=== PATIENT | male | born 1990 | race Caucasian/White ===

== ENCOUNTER 2023-01-28 21:21 | Emergency (ER) | payer OTHER ==
[~2023-01-28] VITALS: Ht 177.8 cm; Wt 86.2 kg
[2023-01-28 21:27] VITALS: BP_SYST 119; PULSE 79; RESP 20; TEMP 99; O2SAT 97
[2023-01-28 22:43] LABS: BASOPHILS % (AUTO) 0.5 % (0.0-2.0); EOSINOPHILS % (AUTO) 0.1 % (0.0-4.0); HEMATOCRIT 41.8 % (36-54); HEMOGLOBIN 14.8 g/dL (14.0-18.0); LYMPHOCYTES # (AUTO) 1.6 K/uL (1.0-5.5); LYMPHOCYTES % (AUTO) 18.6 % (20.5-51.5); MEAN CORPUSCULAR HEMOGLOBIN 32 pg (27-31); MEAN CORPUSCULAR HGB CONC 35 % (32-36); MEAN CORPUSCULAR VOLUME 90 fL (79.0-98.0); MONOCYTES # (AUTO) 0.9 K/uL (0.0-1.0); NEUTROPHILS # (AUTO) 6.1 K/uL (1.8-7.7); NEUTROPHILS % (AUTO) 70.8 % (40.0-70.0); PLATELET COUNT (AUTO) 261 K/uL (130-430); RED BLOOD CELL COUNT(AUTO) 4.64 MIL/uL (4.2-6.2); RED CELL DISTRIBUTION WIDTH 12.3 % (9.0-15.0); WHITE BLOOD COUNT (AUTO) 8.6 K/uL (4.8-10.8)
[2023-01-28 22:55] LABS: CALCIUM 8.9 mg/dL (8.4-11.0); CREATININE 1.21 mg/dL (0.55-1.30)
[2023-01-28 23:00] LABS: ALBUMIN 4.1 g/dL (3.4-4.8); TOTAL BILIRUBIN 1.3 mg/dL (0.0-1.0)
--- NOTE | 2023-01-28 23:00 | NUR ---
Patient to ER bed 5 to gown for evaluation. Side rails up.
--- NOTE | 2023-01-28 23:08 | NUR ---
Dr. Rios bedside for pt eval
[2023-01-28] MEDS ORDERED: AZIT500T10 PO (23:26)
[2023-01-28] MEDS ORDERED: KETOROLAC TROMETHAMINE 30 MG VIAL IVP ONE ×2 (23:30→23:45)
[2023-01-28] MEDS ORDERED: NACL 0.9% 1,000 ML IV ONE ×2 (23:30→23:45)
[2023-01-28] MEDS ORDERED: ONDANSETRON HCL 4 MG/2 ML VIAL IVP ONE ×2 (23:30→23:45)
[2023-01-28] MEDS ORDERED: cefTRIAXone 1 GM in D5W 50 ML IV ONE ×2 (23:30→23:45)
[2023-01-28] MEDS ORDERED: cefTRIAXone 1 GM VIAL ONE (23:54)
--- NOTE | 2023-01-29 | NUR ---
Pt BIB BLS to C/O generalized weakness with no medical problems presented emergency room with complaints of fevers, fatigue, weakness, cough and shortness of breath. Patient reports that he has had 3 different bouts of illnesses that have presented similarly to this in the past month, however, this current bout has been the absolute worst. He reports that he had a pulse oximeter at home, notes that it was in the mid 70s and felt very short of breath. Decision was made to call the ambulance
[2023-01-29 00:35] LABS: BILIRUBIN,URINE NEGATIVE (NEGATIVE); BLOOD, URINE NEGATIVE (NEGATIVE); CLARITY/URINE CLEAR (CLEAR); COLOR,URINE YELLOW (YELLOW); GLUCOSE,URINE NEGATIVE (NEGATIVE); KETONES,URINE 2+ (NEGATIVE); LEUKOCYTE ESTERASE ,URINE NEGATIVE (NEGATIVE); NITRITE, URINE NEGATIVE (NEGATIVE); PROTEIN URINE NEGATIVE (NEGATIVE); UROBILINOGEN,URINE 0.2 (0.2-1.0)
[2023-01-29 01:00] VITALS: BP_SYST 119; PULSE 79; RESP 20; TEMP 98.4; O2SAT 97
--- NOTE | 2023-01-29 01:00 | NUR ---
Patient given written and verbal discharge instructions and verbalizes understanding. ER MD discussed with patient the results and treatment provided. Patient in stable condition. ID arm band removed. IV catheter removed intact and dressing applied, no active bleeding. Patient educated on pain management and to follow up with PMD. Pain Scale 0/10 Opportunity for questions provided and answered. Medication side effect fact sheet provided.
== END 2023-01-29 01:00 | disposition home or self-care (01) ==
LOC: SED 21:21
DX: R06.02 Shortness of breath (principal); R50.9 Fever, unspecified; R53.1 Weakness; Z79.899 Other long term (current) drug therapy; Z20.822 Contact with and (suspected) exposure to COVID-19
CPT/HCPCS: 99285; 96365; 71045; 96375; 87426; 80053; 85025; 36415; 93005; 81003; 87804 ×2; J0696; J1885; J2405